=== PATIENT | female | born 1955 | race Caucasian/White ===

== ENCOUNTER 2018-03-29 07:09 | Emergency (ER) | payer BC ==
[~2018-03-29 07:09] MED LIST: ASPI81TA94 PO; CLON-333 PO; GABA-549 PO; MULT-1335 PO; TRAM-420 PO; [UNRECOGNIZED DRUG - OTHER] PO; [UNRECOGNIZED DRUG - OTHER] PO; [UNRECOGNIZED DRUG - OTHER] PO
[2018-03-29] MEDS ORDERED: TUMERIC/CURCUMIN (07:27)
[2018-03-29] MEDS ORDERED: VITA-175 PO (07:27)
[2018-03-29] MEDS ORDERED: GLUC-158 PO (07:27)
[2018-03-29] MEDS ORDERED: VALE100C2 PO (07:27)
[2018-03-29] MEDS ORDERED: NS(*) 0.9% 1000 ML BAG 1,000 ML IV ONE (08:20)
--- NOTE | 2018-03-29 08:25 | ER Report ---
History and Physical Time Seen By MD: 08:00 Hx. of Stated Complaint: PT HAD STOMACHE AND DIZZINESS AND CHILLS THIS MORNING, COLLAPSED ON FLOOR, PAIN IN NECK HPI/ROS CHIEF COMPLAINT: chills, syncope HISTORY OF PRESENT ILLNESS: Patient awoke at 1:30 this morning with lower abdominal cramping and felt lightheaded. She attempted to go back to sleep, ultimately waking up at about 5:30, she was walking around and felt lightheaded, noticing she had pain on the right side of her neck, and passed out, hitting the back of her head on the way down to the ground. Patient states that she came to, continuously felt lightheaded, and presented to the emergency department. At this point, well lying down, she does not have significant pain or lightheadedness. She notes very mild frontal headache, mild neck pain from where she feels she hit her head, but denies shortness of breath, nausea, vomiting, diarrhea, constipation, stomach pain, UTI symptoms, weakness or paresthesias. Patient has not had recent similar symptoms. She denies recent change in health. She has not had recent travel. She denies tobacco use but admits to 2-3 drinks of alcohol daily. This is not changed from usual for her. REVIEW OF SYSTEMS: Constitutional: chills this am Eyes: No discharge. ENT: No sore throat. Cardiovascular: No chest pain, no palpitations. Respiratory: No cough, no shortness of breath. Gastrointestinal: as above Genitourinary: no uti sympotms Musculoskeletal: No back pain. mild neck pain as above Skin: No rashes. Neurological: mild asif as above Allergies: Coded Allergies: amoxicillin (Verified Allergy, Unknown, 03/29/18) bupropion (Verified Allergy, Unknown, 03/29/18) clavulanic acid (Verified Allergy, Unknown, 03/29/18) Home Meds Reported Medications Valerian Root (VALERIAN ROOT) 100 Mg Capsule, 100 MG PO, CAPSULE 03/29/18 Gluc/Julian-Msm#1/Vit C/Jair/Bor ([id number] COMPLEX CPLT) 1 Each Tablet, 1 EACH PO 03/29/18 [Tumeric/Curcumin] No Conflict Check 03/29/18 Vitamin B Complex (B COMPLEX) 1 Each Tablet, 1 EACH PO 03/29/18 [[employer]] No Conflict Check, PO DAILY 03/26/17 Multivitamin With Minerals (MULTIPLE VITAMIN) 1 Each Tablet, 1 EACH PO DAILY, TAB 03/26/17 Aspirin (ASPIRIN) 81 Mg Tab.chew, 81 MG PO QDAY, TAB.CHEW 03/26/17 Clonazepam (CLONAZEPAM) 1 Mg Tablet, 1 MG PO HS, #6 TAB 03/26/17 Tramadol Hcl (TRAMADOL HCL) 50 Mg Tablet, 50 MG PO QID, TAB 03/26/17 Gabapentin (GABAPENTIN) 300 Mg Capsule, 900 MG PO QID, CAPSULE 03/26/17 Discontinued Reported Medications [beet drink] No Conflict Check, PO DAILY 03/26/17 [liveraid] No Conflict Check, PO DAILY 03/26/17 Reviewed Nurses Notes: Yes Hx Smoking: Yes (20 years 0.5 ppd) Smoking Status: Former Smoker Hx Substance Use Disorder: No Hx Alcohol Use: Yes (2-3 DRINKS/DAY ) Constitutional Vital Sign - Last 24 Hours 03/29/18 03/29/18 03/29/18 03/29/18 07:09 07:15 07:17 07:24 Temp 98.9 Pulse ??? 109 104 Resp 22 14 B/P (MAP) 118/80 (93) 118/80 Pulse Ox 80 96 O2 Delivery Room Air 03/29/18 03/29/18 03/29/18 03/29/18 07:37 07:39 07:54 08:00 Pulse 99 95 Resp 8 10 B/P (MAP) 115/82 (93) Pulse Ox 93 91 O2 Flow Rate 2.0 03/29/18 03/29/18 03/29/18 03/29/18 08:00 08:09 08:24 08:38 Pulse 106 103 Resp 15 13 B/P (MAP) 122/84 (97) 115/81 (92) Pulse Ox 98 03/29/18 03/29/18 03/29/18 03/29/18 08:39 08:54 09:00 10:50 Temp 100.7 Pulse 109 82 Resp 20 13 B/P (MAP) 119/72 (88) Pulse Ox 90 96 Physical Exam General Appearance: The patient is alert, has no immediate need for airway protection and no signs of toxicity. pt in c collar, appears comfortable on gu rney Eyes: Pupils equal and round no pallor or injection. ENT, Mouth: Mucous membranes are moist. No trauma Respiratory: There are no retractions, lungs are clear to auscultation. Cardiovascular: Regular rate and rhythm. No m/r/g Gastrointestinal: Abdomen is soft and non tender, no masses, bowel sounds normal. Very mild LLQ ttp Neurological: alert, oriented x 4, cn grossly nl. No hyperreflexia. 5/5 ms throughout Skin: Warm and dry, no rashes. Musculoskeletal: mild c4-6 ttp. No stepoffs Extremities are nontender, nonswollen and have full range of motion. DIFFERENTIAL DIAGNOSIS: After history and physical exam differential diagnosis was considered for syncope including but not limited to vasovagal syncope, arrhythmia, dehydration, and blood loss.adult fever including but not limited to viral syndromes including influenza, urinary tract infection, pneumonia and sepsis, meningitis Medical Decision Making Data Points Result Diagram: 03/29/18 0722 03/29/18 0722 Laboratory Hematology Test 03/29/18 07:22 03/29/18 08:33 Red Blood Count 5.28 M/uL (4.17-5.56) Mean Corpuscular Volume 97.9 fL (80.0-96.0) Mean Corpuscular Hemoglobin 32.9 pg (26.0-33.0) Mean Corpuscular Hemoglobin Concent 33.6 g/dL (32.0-36.0) Red Cell Distribution Width 12.9 % (11.5-14.5) Mean Platelet Volume 8.2 fL (7.2-11.1) Neutrophils (%) (Auto) 83.8 % (39.4-72.5) Lymphocytes (%) (Auto) 6.7 % (17.6-49.6) Monocytes (%) (Auto) 8.5 % (4.1-12.4) Eosinophils (%) (Auto) 0.2 % (0.4-6.7) Basophils (%) (Auto) 0.8 % (0.3-1.4) Nucleated RBC Relative Count (auto) 0.0 /100WBC Neutrophils # (Auto) 7.2 K/uL (2.0-7.4) Lymphocytes # (Auto) 0.6 K/uL (1.3-3.6) Monocytes # (Auto) 0.7 K/uL (0.3-1.0) Eosinophils # (Auto) 0.0 K/uL (0.0-0.5) Basophils # (Auto) 0.1 K/uL (0.0-0.1) Nucleated RBC Absolute Count (auto) 0.00 K/uL Sodium Level 141 mmol/L (137-145) Potassium Level 4.0 mmol/L (3.5-5.0) Chloride Level 98 mmol/L (98-107) Carbon Dioxide Level 31 mmol/L (22-31) Blood Urea Nitrogen 11 mg/dl (7-18) Creatinine 0.90 mg/dl (0.52-1.04) Glomerular Filtration Rate Calc > 60.0 Random Glucose 108 mg/dl (75-110) Calcium Level 10.2 mg/dl (8.4-10.2) Total Bilirubin 0.9 mg/dl (0.2-1.3) Aspartate Amino Transf (AST/SGOT) 36 U/L (0-35) Alanine Aminotransferase (ALT/SGPT) 33 U/L (0-56) Alkaline Phosphatase 78 U/L (0-126) Total Protein 8.2 g/dl (6.3-8.2) Albumin 4.5 g/dl (3.5-5.0) Lipase 43 U/L (23-300) Urine Color Yellow Urine Clarity Slightly-cloudy Urine pH 7.0 pH (4.8-9.5) Urine Specific [place] 1.010 Urine Protein 30 mg/dL (NEGATIVE) Urine Glucose (UA) Negative mg/dL (NEGATIVE) Urine Ketones Negative mg/dL (NEGATIVE) Urine Blood Negative (NEGATIVE) Urine Nitrite Negative (NEGATIVE) Urine Bilirubin Negative (NEGATIVE) Urine Urobilinogen Negative mg/dL (0.2-1.9) Urine Leukocyte Esterase Negative (NEGATIVE) Urine RBC <1 /HPF (0-2/HPF) Urine WBC 1 /HPF (0-5/HPF) Urine Squamous Epithelial Cells Few /LPF (</=FEW) Urine Bacteria Negative /HPF (NONE-FEW) Urine Mucus None /HPF (NONE-FEW) Chemistry Test 03/29/18 07:22 03/29/18 08:33 White Blood Count 8.6 k/uL (4.5-11.0) Red Blood Count 5.28 M/uL (4.17-5.56) Hemoglobin 17.4 g/dL (12.0-16.0) Hematocrit 51.7 % (34.0-47.0) Mean Corpuscular Volume 97.9 fL (80.0-96.0) Mean Corpuscular Hemoglobin 32.9 pg (26.0-33.0) Mean Corpuscular Hemoglobin Concent 33.6 g/dL (32.0-36.0) Red Cell Distribution Width 12.9 % (11.5-14.5) Platelet Count 244 K/uL (150-450) Mean Platelet Volume 8.2 fL (7.2-11.1) Neutrophils (%) (Auto) 83.8 % (39.4-72.5) Lymphocytes (%) (Auto) 6.7 % (17.6-49.6) Monocytes (%) (Auto) 8.5 % (4.1-12.4) Eosinophils (%) (Auto) 0.2 % (0.4-6.7) Basophils (%) (Auto) 0.8 % (0.3-1.4) Nucleated RBC Relative Count (auto) 0.0 /100WBC Neutrophils # (Auto) 7.2 K/uL (2.0-7.4) Lymphocytes # (Auto) 0.6 K/uL (1.3-3.6) Monocytes # (Auto) 0.7 K/uL (0.3-1.0) Eosinophils # (Auto) 0.0 K/uL (0.0-0.5) Basophils # (Auto) 0.1 K/uL (0.0-0.1) Nucleated RBC Absolute Count (auto) 0.00 K/uL Glomerular Filtration Rate Calc > 60.0 Calcium Level 10.2 mg/dl (8.4-10.2) Total Bilirubin 0.9 mg/dl (0.2-1.3) Aspartate Amino Transf (AST/SGOT) 36 U/L (0-35) Alanine Aminotransferase (ALT/SGPT) 33 U/L (0-56) Alkaline Phosphatase 78 U/L (0-126) Total Protein 8.2 g/dl (6.3-8.2) Albumin 4.5 g/dl (3.5-5.0) Lipase 43 U/L (23-300) Urine Color Yellow Urine Clarity Slightly-cloudy Urine pH 7.0 pH (4.8-9.5) Urine Specific [place] 1.010 Urine Protein 30 mg/dL (NEGATIVE) Urine Glucose (UA) Negative mg/dL (NEGATIVE) Urine Ketones Negative mg/dL (NEGATIVE) Urine Blood Negative (NEGATIVE) Urine Nitrite Negative (NEGATIVE) Urine Bilirubin Negative (NEGATIVE) Urine Urobilinogen Negative mg/dL (0.2-1.9) Urine Leukocyte Esterase Negative (NEGATIVE) Urine RBC <1 /HPF (0-2/HPF) Urine WBC 1 /HPF (0-5/HPF) Urine Squamous Epithelial Cells Few /LPF (</=FEW) Urine Bacteria Negative /HPF (NONE-FEW) Urine Mucus None /HPF (NONE-FEW) Urinalysis Test 03/29/18 08:33 Urine Color Yellow Urine Clarity Slightly-cloudy Urine pH 7.0 pH (4.8-9.5) Urine Specific [place] 1.010 Urine Protein 30 mg/dL (NEGATIVE) Urine Glucose (UA) Negative mg/dL (NEGATIVE) Urine Ketones Negative mg/dL (NEGATIVE) Urine Blood Negative (NEGATIVE) Urine Nitrite Negative (NEGATIVE) Urine Bilirubin Negative (NEGATIVE) Urine Urobilinogen Negative mg/dL (0.2-1.9) Urine Leukocyte Esterase Negative (NEGATIVE) Urine RBC <1 /HPF (0-2/HPF) Urine WBC 1 /HPF (0-5/HPF) Urine Squamous Epithelial Cells Few /LPF (</=FEW) Urine Bacteria Negative /HPF (NONE-FEW) Urine Mucus None /HPF (NONE-FEW) EKG/Imaging EKG Interpretation 12 lead EKG: Rhythm: Normal sinus rhythm [place]: Normal QRS: Normal ST segments: Normal Monitor Interpretation: Normal Sinus Rhythm ED Course/Re-evaluation ED Course Patient is 62-year-old female who awoke this morning not feeling well, then had syncopal event. Throughout ED stay, patient feels comfortable. She has no focal findings on exam, and neuro and cardiac exam are unremarkable. Of note she does have 90% sats on room air, though notes that this is normal for her. Upon ambulation she feels no new symptoms and no respiratory distress. Constellation of symptoms may be consistent with viral, flulike illness. The only focal s ymptoms were abdominal pain and cramping which she noted at 1:30 AM. She has not had stool since then. She does note she has had a colonoscopy one year ago which was normal. I considered CT abdomen to evaluate for diverticulitis or other early infectious causes. At this point, patient declines this and wishes to go home and rest, hydrate and reassess. This is reasonable and she understands very strict return precautions if she has focal or concerning symptoms. Decision to Disposition Date: Mar 29, 2018 Decision to Disposition Time: 11:42 Depart Departure Latest Vital Signs Vital Signs Date Time Temp Pulse Resp B/P (MAP) Pulse Ox O2 Delivery O2 Flow Rate FiO2 03/29/18 10:50 100.7 03/29/18 09:00 119/72 (88) 03/29/18 08:54 82 13 96 03/29/18 08:00 2.0 03/29/18 07:17 Room Air Impression: Primary Impression: Syncope Additional Impression: Fever Condition: Improved Disposition: HOME OR SELF-CARE Referrals: REGGIE JIANG MD (PCP) Patient Instructions: Fever in Adults (ED) Additional Instructions: As we discussed, please return immediately for pain worsening symptoms so that we may reevaluate you. Giving your fever and passing out, it is possible that you have an early serious illness, however there are no clear signs in the emergency department right now. I recommend you rest today, hydrate, and again return for any concerns. Problem Qualifiers Primary Impression: Syncope Syncope type: unspecified Qualified Codes: R55 - Syncope and collapse Additional Impression: Fever Fever type: unspecified Qualified Codes: R50.9 - Fever, unspecified MICHAEL PINEDA MD Mar 29, 2018 08:25
[2018-03-29 08:35] LABS: PLATELET COUNT, AUTOMATED 244 K/uL (150-450)
--- NOTE | 2018-03-29 09:46 | EKG ---
FACILITY: [facility] - [place] PATIENT NAME: SHAINA COATS : [id number] MR: [id number] V: [id number] EXAM DATE: ORDERING PHYSICIAN: MICHAEL PINEDA TECHNOLOGIST: NIURKA Test Reason : SYNCOPE Blood Pressure : / mmHG Vent. Rate : 097 BPM Atrial Rate : 097 BPM P-R Int : 146 ms QRS Dur : 074 ms QT Int : 354 ms P-R-T Axes : 063 084 072 degrees QTc Int : 449 ms Normal sinus rhythm Normal ECG When compared with ECG of 06-JUL-2013 10:57, No significant change was found Confirmed by Daniel Hawkins ([id number]) on 03/29/2018 2:13:22 PM Referred By: EDWIN Confirmed By:Daniel Khan
--- NOTE | 2018-03-29 10:08 | RADIOLOGY IMAGING REPORT ---
FACILITY: [facility] PATIENT NAME: Shikha Ayon : 1955 MR: [id number] V: [id number] EXAM DATE: ORDERING PHYSICIAN: MICHAEL PINEDA TECHNOLOGIST: Location: [facility] Patient: Shikha Ayon : 1955 Visit/Account:[id number] Date of Sevice: 03/29/2018 CT Head without contrast Indication: Syncope, tenderness ttp head posteriorly Comparison: None available Technique: Axial CT images were obtained through the brain from the skull base to the vertex without administration of IV contrast. Reformatted coronal and sagittal images were also obtained. One of the following dose optimization techniques was utilized in the performance of this exam: Autom ated exposure control; adjustment of the mA and/or kV according to the patient's size; or use of an i terative reconstruction technique. Specific details can be referenced in the facility's radiology C T exam operational policy. Findings: There is no acute hemorrhage, midline shift or mass effect. No extra-axial fluid collecti ons. The benitez-white matter differentiation is maintained. The ventricles and basal cisterns are nor mal in contour and appearance. The visualized paranasal sinuses and mastoid air cells are clear. Ther e are degenerative changes noted within the right temporomandibular joint. IMPRESSION: 1. No acute intracranial process. Report Dictated By: Demetrius Frances DO at 03/29/2018 9:59 AM Report E-Signed By: Demetrius Frances DO at 03/29/2018 10:04 AM WSN:[id number]
--- NOTE | 2018-03-29 10:10 | RADIOLOGY IMAGING REPORT ---
FACILITY: [facility] PATIENT NAME: Shikha Ayon : 1955 MR: [id number] V: [id number] EXAM DATE: ORDERING PHYSICIAN: MICHAEL PINEDA TECHNOLOGIST: Location: [facility] Patient: Shikha Ayon : 1955 Visit/Account:[id number] Date of Sevice: 03/29/2018 CHEST PA AND LAT HISTORY: rigors, fever COMPARISON: 07/31/2015 FINDINGS: Cardiomediastinal contours: Normal Lungs and pleura: Lungs are mildly hyperexpanded. No acute consolidation or edema. No pneumothorax. Bones/soft tissues: Normal Other findings: None significant IMPRESSION: 1. No acute cardiopulmonary disease. No change. Report Dictated By: Liam Case MD at 03/29/2018 10:05 AM Report E-Signed By: Liam Case MD at 03/29/2018 10:06 AM WSN:[id number]
--- NOTE | 2018-03-29 10:12 | RADIOLOGY IMAGING REPORT ---
[place] [facility] [place] Shikha Ayon : 1955 MR: [id number] V: [id number] EXAM DATE: ORDERING PHYSICIAN: MICHAEL PINEDA TECHNOLOGIST: Location: [facility] [place] Patient: Shikha Ayon : 1955 Visit/Account:[id number] Date of Sevice: 03/29/2018 EXAMINATION: CT cervical spine without IV contrast HISTORY: Trauma COMPARISON: None. TECHNIQUE: Axial images were obtained from the skull base through the upper thoracic spine without I V contrast administration. Coronal and sagittal reformatted images were obtained from the axial [facility] e data. One of the following dose optimization techniques was utilized in the performance of this exam: Autom ated exposure control; adjustment of the mA and/or kV according to the patient's size; or use of an i terative reconstruction technique. Specific details can be referenced in the facility's radiology C T exam operational policy. FINDINGS: There is no acute fracture. The vertebral body heights are maintained. There is slight straightening of the normal cervical lordosis which can be seen in the setting of patient positioning or muscular s pasm. Mild endplate osteophytes are present. Incidentally noted are degenerative changes within the r ight temporomandibular joint. Imaged portions of the lung apices are clear. IMPRESSION: 1. No acute osseous process. Report Dictated By: Demetrius Frances DO at 03/29/2018 10:04 AM Report E-Signed By: Demetrius Frances DO at 03/29/2018 10:07 AM WSN:[id number]
[2018-03-29 11:00] VITALS: BP 99/65
[2018-03-29] MEDS ORDERED: ACETAMINOPHEN 500 MG TAB PO ONE (11:05)
== END 2018-03-29 11:57 | disposition home or self-care (01) ==
LOC: ER 08:17
DX: R55 Syncope and collapse (principal); R50.9 Fever, unspecified
CPT/HCPCS: 70450; 71046; 72125; 81001; 83690; 85025; 93005; 96360; 99284; J7030; L0172; 82040; 82247; 82310; 82374; 82435; 82565; 82947; 84075; 84132; 84155; 84295; 84450; 84460; 84520

== ENCOUNTER 2018-12-14 16:33 | Emergency (ER) | payer BC ==
[~2018-12-14 16:33] MED LIST changes: +GLUC-158 PO; +TUMERIC/CURCUMIN; +VALE100C2 PO; +VITA-175 PO
--- NOTE | 2018-12-14 16:49 | ER Report ---
History and Physical Time Seen By MD: 16:47 Hx. of Stated Complaint: pt reports chest pain that started ~0200 this am (KAYLA PINEDA MD) HPI/ROS No significant PMH other than smoking and pt. now vapes. No DM or HTN. 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 Walks daily. Awoke this morning at 0200 with sub sternal chest pressure. Got up and then went back to sleep in her recliner. When she awoke after napping in the chair, still with chest pressure but not as severe. No radiation/nausea/diaphoresis/or SOB. Pain worse with inspiration. No recent fever/chills/cough. No long car/plane trips. No trauma. Remainder of the 14 system rev: Yes (KAYLA PINEDA MD) Allergies: Coded Allergies: amoxicillin (Verified Allergy, Unknown, 12/14/18) bupropion (Verified Allergy, Unknown, 12/14/18) clavulanic acid (Verified Allergy, Unknown, 12/14/18) Home Meds Reported Medications Valerian Root (VALERIAN ROOT) 100 Mg Capsule, 100 MG PO, CAPSULE 03/29/18 Gluc/Julian-Msm#1/Vit C/Jair/Bor (PUYITWX-BYGOB-FRI COMPLEX CPLT) 1 Each Tablet, 1 EACH PO 03/29/18 [Tumeric/Curcumin] No Conflict Check 03/29/18 Vitamin B Complex (B COMPLEX) 1 Each Tablet, 1 EACH PO 03/29/18 [[employer]] No Conflict Check, PO DAILY 03/26/17 Multivitamin With Minerals (MULTIPLE VITAMIN) 1 Each Tablet, 1 EACH PO DAILY, TAB 03/26/17 Aspirin (ASPIRIN) 81 Mg Tab.chew, 81 MG PO QDAY, TAB.CHEW 03/26/17 Clonazepam (CLONAZEPAM) 1 Mg Tablet, 1 MG PO HS, #6 TAB 03/26/17 Tramadol Hcl (TRAMADOL HCL) 50 Mg Tablet, 50 MG PO QID, TAB 03/26/17 Gabapentin (GABAPENTIN) 300 Mg Capsule, 900 MG PO QID, CAPSULE 03/26/17 Reviewed Nurses Notes: Yes Old Medical Records Reviewed: Yes (KAYLA PINEDA MD) Hx Smoking: Yes (20 years 0.5 ppd) Smoking Status: Former Smoker Hx Substance Use Disorder: No Hx Alcohol Use: Yes (2-3 DRINKS/DAY ) (KAYLA PINEDA MD) Constitutional Vital Sign - Last 24 Hours 12/14/18 12/14/18 12/14/18 12/14/18 16:35 16:45 17:00 17:00 Temp 97.7 Pulse 80 79 75 Resp 15 11 11 B/P (MAP) 141/87 Pulse Ox 90 88 95 O2 Delivery Room Air O2 Flow Rate 1.0 12/14/18 12/14/18 12/14/18 12/14/18 17:15 17:31 17:45 18:00 Pulse 80 71 Resp 15 11 B/P (MAP) 128/86 (100) 126/86 (99) Pulse Ox 94 92 93 12/14/18 12/14/18 12/14/18 12/14/18 18:15 18:20 18:25 18:30 Pulse 74 71 75 69 Resp 42 0 16 7 B/P (MAP) 122/79 (93) Pulse Ox 92 91 91 89 12/14/18 12/14/18 12/14/18 12/14/18 18:35 18:40 18:45 19:15 Pulse 68 67 67 64 Resp 8 7 7 16 Pulse Ox 90 92 91 94 12/14/18 12/14/18 12/14/18 12/14/18 19:30 19:45 20:00 20:05 Pulse 60 67 68 Resp 8 11 7 6 B/P (MAP) 129/89 (102) 132/86 (101) Pulse Ox 95 93 93 94 12/14/18 12/14/18 20:15 20:20 Pulse 67 71 Resp 8 13 Pulse Ox 94 93 O2 Delivery Room Air O2 Flow Rate 0 (CRISTI SOLIS DO) Physical Exam General Appearance: The patient is alert, has no immediate need for airway protection and no current signs of toxicity. Eyes: Pupils equal and round no injection. Respiratory: Chest is non tender, lungs are clear to auscultation. Cardiac: regular rate and rhythm Gastrointestinal: Abdomen is soft and non tender, no masses, bowel sounds normal. Extremities have full range of motion and are non tender. Skin: No rashes or lesions. DIFFERENTIAL DIAGNOSIS: After history and physical exam differential diagnosis was considered for chest pain including but not limited to myocardial ischemia, pericarditis pulmonary embolus, chest wall pain, pleural inflammation and pulmonary infectious causes. (KAYLA PINEDA MD) Medical Decision Making Data Points Result Diagram: 12/14/18 1640 12/14/18 1640 Laboratory Hematology Test 12/14/18 16:40 12/14/18 19:20 Red Blood Count 4.66 M/uL (4.17-5.56) Mean Corpuscular Volume 94.3 fL (80.0-96.0) Mean Corpuscular Hemoglobin 32.6 pg (26.0-33.0) Mean Corpuscular Hemoglobin Concent 34.5 g/dL (32.0-36.0) Red Cell Distribution Width 12.6 % (11.5-14.5) Mean Platelet Volume 7.9 fL (7.2-11.1) Neutrophils (%) (Auto) 50.5 % (39.4-72.5) Lymphocytes (%) (Auto) 37.3 % (17.6-49.6) Monocytes (%) (Auto) 10.3 % (4.1-12.4) Eosinophils (%) (Auto) 1.0 % (0.4-6.7) Basophils (%) (Auto) 0.9 % (0.3-1.4) Nucleated RBC Relative Count (auto) 0.1 /100WBC Neutrophils # (Auto) 3.0 K/uL (2.0-7.4) Lymphocytes # (Auto) 2.2 K/uL (1.3-3.6) Monocytes # (Auto) 0.6 K/uL (0.3-1.0) Eosinophils # (Auto) 0.1 K/uL (0.0-0.5) Basophils # (Auto) 0.1 K/uL (0.0-0.1) Nucleated RBC Absolute Count (auto) 0.01 K/uL D-Dimer Quantitative (PE/DVT) 0.56 ug/ml (0-0.50) Sodium Level 133 mmol/L (137-145) Potassium Level 4.5 mmol/L (3.5-5.0) Chloride Level 96 mmol/L (98-107) Carbon Dioxide Level 27 mmol/L (22-31) Blood Urea Nitrogen 11 mg/dl (7-18) Creatinine 0.80 mg/dl (0.52-1.04) Glomerular Filtration Rate Calc > 60.0 Random Glucose 93 mg/dl (75-110) Calcium Level 10.3 mg/dl (8.4-10.2) Total Bilirubin 0.8 mg/dl (0.2-1.3) Aspartate Amino Transf (AST/SGOT) 37 U/L (0-35) Alanine Aminotransferase (ALT/SGPT) 38 U/L (0-56) Alkaline Phosphatase 75 U/L (0-126) Total Protein 7.6 g/dl (6.3-8.2) Albumin 4.5 g/dl (3.5-5.0) Troponin I < 0.012 ng/ml Chemistry Test 12/14/18 16:40 12/14/18 19:20 White Blood Count 5.9 k/uL (4.5-11.0) Red Blood Count 4.66 M/uL (4.17-5.56) Hemoglobin 15.2 g/dL (12.0-16.0) Hematocrit 43.9 % (34.0-47.0) Mean Corpuscular Volume 94.3 fL (80.0-96.0) Mean Corpuscular Hemoglobin 32.6 pg (26.0-33.0) Mean Corpuscular Hemoglobin Concent 34.5 g/dL (32.0-36.0) Red Cell Distribution Width 12.6 % (11.5-14.5) Platelet Count 261 K/uL (150-450) Mean Platelet Volume 7.9 fL (7.2-11.1) Neutrophils (%) (Auto) 50.5 % (39.4-72.5) Lymphocytes (%) (Auto) 37.3 % (17.6-49.6) Monocytes (%) (Auto) 10.3 % (4.1-12.4) Eosinophils (%) (Auto) 1.0 % (0.4-6.7) Basophils (%) (Auto) 0.9 % (0.3-1.4) Nucleated RBC Relative Count (auto) 0.1 /100WBC Neutrophils # (Auto) 3.0 K/uL (2.0-7.4) Lymphocytes # (Auto) 2.2 K/uL (1.3-3.6) Monocytes # (Auto) 0.6 K/uL (0.3-1.0) Eosinophils # (Auto) 0.1 K/uL (0.0-0.5) Basophils # (Auto) 0.1 K/uL (0.0-0.1) Nucleated RBC Absolute Count (auto) 0.01 K/uL D-Dimer Quantitative (PE/DVT) 0.56 ug/ml (0-0.50) Glomerular Filtration Rate Calc > 60.0 Calcium Level 10.3 mg/dl (8.4-10.2) Total Bilirubin 0.8 mg/dl (0.2-1.3) Aspartate Amino Transf (AST/SGOT) 37 U/L (0-35) Alanine Aminotransferase (ALT/SGPT) 38 U/L (0-56) Alkaline Phosphatase 75 U/L (0-126) Total Protein 7.6 g/dl (6.3-8.2) Albumin 4.5 g/dl (3.5-5.0) Troponin I < 0.012 ng/ml Coagulation Test 12/14/18 16:40 D-Dimer Quantitative (PE/DVT) 0.56 ug/ml (CRISTI SOLIS DO) EKG/Imaging Imaging Results: CT scan of the CTA pulmonary angiogram was obtained. The results of the study are CT angiogram chest with contrast Indication: Pleuritic chest pain with positive d-dimer. Comparison: None available. Technique: Axial CT images are obtained through the chest after administration of 75 mL Isovue 370 IV contrast. Reformatted coronal and sagittal images were reviewed as well as coronal MIP images. One of the following dose optimization techniques was utilized in the performance of this exam: automated exposure control; adjustment of the mA and/or kV according to the patient's size; or use of an iterative reconstruction technique. Specific details can be referenced in the facility's radiology CT exam operational policy. FINDINGS: No evidence of filling defect within the pulmonary vasculature to suggest pulmonary embolus. Lungs show mild dependent atelectasis and scarring. No consolidations, pleural effusion or pneumothorax. No discrete nodule or focal interstitial opacity. Airways are clear. Heart is normal size without pericardial effusion. Aorta shows no aneurysm or dissection. Mediastinum and hilar regions show no enlarged lymph nodes or abnormal density. Bony structures show no acute fractures or aggressive bony lesions. Mild degen erative change seen spine. Chest wall shows no enlarged axillary lymph nodes or masses. Limited views of the upper abdomen are unremarkable. IMPRESSION: 1. No evidence of pulmonary embolus. 2. No acute cardiothoracic abnormality The study was read by the radiologist. I viewed the images myself on the PACS system. (CRISTI SOLIS DO) ED Course/Re-evaluation ED Course Care assumed at shift change from Dr. Kayla Pineda with diagnostic. Repeat troponin pending at a CTA angiogram pulmonary gram for an elevated d-dimer. Both studies were unremarkable. Results are discussed with the patient. She would like to go home. She will have urgent follow-up with Dr. Oropeza. Patient advised to return to the ER for any further chest pain. Decision to Disposition Date: Dec 14, 2018 Decision to Disposition Time: 20:23 (CRISTI SOLIS DO) Depart Departure Latest Vital Signs Vital Signs Date Time Temp Pulse Resp B/P (MAP) Pulse Ox O2 Delivery O2 Flow Rate FiO2 12/14/18 20:20 71 13 93 Room Air 0 12/14/18 20:00 132/86 (101) 12/14/18 16:35 97.7 (CRISTI SOLIS DO) Impression: Primary Impression: Chest pain of uncertain etiology Condition: Improved Disposition: HOME OR SELF-CARE Referrals: REGGIE JIANG MD (PCP) Patient Instructions: Chest Pain (ED) Additional Instructions: Follow-up with Dr. Oropeza this week KAYLA PINEDA MD Dec 14, 2018 16:49 CRISTI SOLIS DO Dec 14, 2018 20:26
[2018-12-14] MEDS ORDERED: ASPIRIN 81 MG CHEW PO ONE (17:25)
[2018-12-14 17:30] LABS: PLATELET COUNT, AUTOMATED 261 K/uL (150-450)
--- NOTE | 2018-12-14 17:41 | RADIOLOGY IMAGING REPORT ---
FACILITY: [facility] [place] PATIENT NAME: Shikha Ayon : 1955 MR: [id number] V: [id number] EXAM DATE: ORDERING PHYSICIAN: LUKAS PINEDA TECHNOLOGIST: Location: [facility] Patient: Shikha Ayon : 1955 Visit/Account:[id number] Date of Sevice: 12/14/2018 Exam type: CHEST PA LAT History: Chest pain and shortness of breath Comparison: March 29, 2018. Findings: The lungs are free of acute effusions, infiltrates or edema. There is a small amount scarring in the left lung base. The cardiac silhouette is normal in size. There are mild degenerative changes of t he thoracic spine IMPRESSION: 1. Small amount scarring in the left lung base otherwise no evidence of pulmonary consolidation Report Dictated By: Juana Pierce MD at 12/14/2018 5:34 PM Report E-Signed By: Juana Pierce MD at 12/14/2018 5:35 PM [id number]:[email or web address]
[2018-12-14] MEDS ORDERED: KETOROLAC 30 MG/ML VIAL IVP ONE (18:45)
[2018-12-14] MEDS ORDERED: IOPAMIDOL 76% 100 ML INFUS BTL 100 ML ONE (18:53)
[2018-12-14] MEDS ORDERED: NS(*) 0.9% 50 ML BAG 50 ML ONE (18:54)
[2018-12-14 20:00] VITALS: BP 132/86
--- NOTE | 2018-12-14 20:23 | RADIOLOGY IMAGING REPORT ---
FACILITY: [facility] PATIENT NAME: Shikha Ayon : 1955 MR: [id number] V: [id number] EXAM DATE: ORDERING PHYSICIAN: LUKAS PINEDA TECHNOLOGIST: Location: [facility] [place] Patient: Shikha Ayon : 1955 Visit/Account:[id number] Date of Sevice: 12/14/2018 CT angiogram chest with contrast Indication: Pleuritic chest pain with positive d-dimer. Comparison: None available. Technique: Axial CT images are obtained through the chest after administration of 75 mL Isovue 370 IV contrast. Reformatted coronal and sagittal images were reviewed as well as coronal MIP images. One of the following dose optimization techniques was utilized in the performance of this exam: auto mated exposure control; adjustment of the mA and/or kV according to the patient's size; or use of an iterative reconstruction technique. Specific details can be referenced in the facility's radiology C T exam operational policy. FINDINGS: No evidence of filling defect within the pulmonary vasculature to suggest pulmonary embolus. Lungs show mild dependent atelectasis and scarring. No consolidations, pleural effusion or pneumothor ax. No discrete nodule or focal interstitial opacity. Airways are clear. Heart is normal size without pericardial effusion. Aorta shows no aneurysm or dissection. Mediastinum and hilar regions show no enlarged lymph nodes or abnormal density. Bony structures show no acute fractures or aggressive bony lesions. Mild degenerative change seen spi ne. Chest wall shows no enlarged axillary lymph nodes or masses. Limited views of the upper abdomen are unremarkable. IMPRESSION: 1. No evidence of pulmonary embolus. 2. No acute cardiothoracic abnormality Report Dictated By: Matt Ivy at 12/14/2018 8:09 PM Report E-Signed By: Matt Ivy at 12/14/2018 8:16 PM WSN:[id number]
--- NOTE | 2018-12-16 11:12 | EKG ---
FACILITY: [facility] - [place] PATIENT NAME: SHAINA COATS : [id number] MR: [id number] V: [id number] EXAM DATE: ORDERING PHYSICIAN: LUKAS PINEDA TECHNOLOGIST: LISA Little Reason : CP Blood Pressure : / mmHG Vent. Rate : 077 BPM Atrial Rate : 077 BPM P-R Int : 170 ms QRS Dur : 084 ms QT Int : 378 ms P-R-T Axes : 076 083 071 degrees QTc Int : 427 ms Sinus rhythm Nonspecific ST findings - suspect early repolarization, but cannot exclude other causes Decreased R wave progression through anterior leads Confirmed by LUKE SPRAGUE ([id number] on 12/16/2018 3:01:03 PM Referred By: Confirmed By:LUKE SPRAGUE
== END 2018-12-14 20:30 | disposition home or self-care (01) ==
LOC: ER 16:47
DX: R07.89 Other chest pain (principal)
CPT/HCPCS: 71046; 71275; 84484; 85025; 85379; 93005; 99284; J7050; Q9967; 82040; 82247; 82310; 82374; 82435; 82565; 82947; 84075; 84132; 84155; 84295; 84450; 84460; 84520